=== PATIENT | male | born 1985 | race Caucasian/White ===

== ENCOUNTER 2018-03-22 22:15 | Emergency (ER) | payer OTHER ==
[~2018-03-22] VITALS: Ht 188 cm; Wt 108.9 kg
[2018-03-22] MEDS ORDERED: NOHOMEMEDICATIONS (22:44)
[2018-03-22] MEDS ORDERED: NAPROSYN500 MG PO (23:04)
[2018-03-22 23:27] VITALS: BP 121/65
== END 2018-03-22 23:29 | disposition home or self-care (01) ==
LOC: ER 22:15
DX: S93.401A Sprain of unspecified ligament of right ankle, initial encounter (principal); S90.512A Abrasion, left ankle, initial encounter; S80.212A Abrasion, left knee, initial encounter; X58.XXXA Exposure to other specified factors, initial encounter; Y92.009 Unspecified place in unspecified non-institutional (private) residence as the place of occurrence of the external cause; Y93.89 Activity, other specified; Y99.8 Other external cause status